=== PATIENT | male | born 1955 | race Caucasian/White ===

== ENCOUNTER 2017-03-09 22:46 | Emergency (ER) | payer OTHER ==
--- NOTE | 2017-03-14 08:26 | ER ---
ADMIT: 03/09/2017 RM/LOC: ER [facility] MR#: [id number] [address] [id number] [address] [place] [address] Emergency Room Report SEX: M AGE: 61 : 1955 DATE: 03/09/2017 CHIEF COMPLAINT: Nosebleed. HISTORY OF PRESENT ILLNESS: The patient is a 61-year-old male, comes in with a nosebleed that has been going on off and on for the past day. He has had no trauma to his nose, does not normally get nosebleeds. The patient denies being on any blood thinners. He states the bleeding has been coming out from the right side of his nostril. He denies any recent illness. He is not having any bleeding in his urine, stools, and no easy bruising. PAST MEDICAL HISTORY: Hypertension and diabetes. MEDICATIONS: See nurse's note. ALLERGIES: SEE NURSE'S NOTE. SOCIAL HISTORY: The patient denies smoking, drug, or alcohol use. PHYSICAL EXAMINATION: GENERAL: The patient is alert, in no distress. HEENT: Head is atraumatic. Pupils are equally round and reactive to light. Airway is patent. He does have moderate active bleeding from his right nostril. HEART: Regular rate and rhythm. LUNGS: Clear to auscultation. SKIN: Warm and dry. There is no ecchymosis or petechiae noted. EMERGENCY DEPARTMENT COURSE: The patient had moderate bleeding from his right nostril on arrival. I was unable to identify the site initially, we did use Afrin nasal spray, with some topical lidocaine and adrenaline on a cotton ball with clamp for approximately 15 minutes. I was able to get it slowed down, but did see an anterior septal right-sided lesion that was likely the bleeding site. This was fairly posterior located on the anterior septum, however. I was able to use silver nitrate stick and obtain hemostasis. The patient was observed for another 20 to 30 minutes and there was no recurrence of bleeding. He was discharged home with instructions to spray with Afrin and apply direct pressure if it begins bleeding again. He can repeat that, but if it bleeds more, he has to return to the ER. DIAGNOSIS: Acute epistaxis, right anterior. Walt Norris MD/ ni JOB #: [id number] CC: Walt Norris MD, Attending Physician Rachel Kessler MD, Family Physician
== END 2017-03-10 00:03 | disposition home or self-care (01) ==
LOC: ER 22:46
PROC: 0W3Q7ZZ Control Bleeding in Respiratory Tract, Via Natural or Artificial Opening (ICD-10-PCS; principal; 2017-03-10)
DX: R04.0 Epistaxis (principal); I10 Essential (primary) hypertension; E11.9 Type 2 diabetes mellitus without complications; Z79.84 Long term (current) use of oral hypoglycemic drugs; Z79.4 Long term (current) use of insulin; Z79.899 Other long term (current) drug therapy